=== PATIENT | female | born 1995 | race Caucasian/White ===

== ENCOUNTER → 2016-05-21 | Day surgery (SDC) | payer OTHER ==
[2016-05-14 11:25] VITALS: BMI 45.0
[~2016-05-21] VITALS: Ht 160 cm; Wt 116.4 kg
[~2016-05-21] MED LIST: ALBUAER INH; AMPH15CA7 PO; AMPH30CA3 PO; BCPILLS PO; CIPR-255 PO; FENTANYL CITRATE INJ 50 MCG/1 ML 2 ML VIAL ONE; FLUT0.15 NAE; IBUP-1050 PO; LEVO112T4 PO; LITH600C PO; MONT1TAB3 PO; PANT20TA PO; PRENTAB26 PO; PRLSR20 PO; PROPOFOL IV EMULSION 10 MG/ML 20 ML VIAL IV ONE; RANI150T3 PO; SODIUM CHLORIDE 0.9% 500ML 500 ML IV ONE
[2016-05-21 11:57] VITALS: Ht 160 cm; Wt 116.4 kg
--- NOTE | 2016-05-21 12:48 | Endo History and Physical ---
History & Physical Date of Service: May 21, 2016. Chief Complaint: RECTAL BLEEDING Referring Physician: RICHELLE MICHAELS MD History of Present Illness 20 y presenting for evaluation for rectal bleeding Past Surgical History Hx Cardiac Surgery: No Hx Internal Defibrillator: No Hx Pacemaker: No Hx Abdominal Surgery: Yes (ILYA) Hx of Implantable Prosthesis: No Hx Post-Op Nausea and Vomiting: No Hx Cancer Surgery: No Hx Thoracic Surgery: No Hx Orthopedic: No Hx Urinary Tract Surgery: No Family History Colon CA Social History Smoking Status: Never Smoker Hx Substance Use: No Hx Alcohol Use: No Allergies Coded Allergies: Hydrocodone (Verified Allergy, Unknown, vomiting, rash, 05/14/16) Sulfamethoxazole w/Trimethoprim (Verified Allergy, Unknown, vomiting, 05/14) Current Medications Reported Home Medications Medications Dose Route/Sig Max Daily Dose Days Date Category Adderall Xr 15MG (Amphetamine-Dextroamphetamine 15MG) 1 Cap Cap 15 Mg PO DAILY AFTERNOON 05/14/16 Reported Adderall Xr 30MG (Amphetamine-Dextroamphetamine 30MG) 1 Cap Cap 30 Mg PO QAM 05/14/16 Reported Zantac (Ranitidine HCl) 150 Mg Tab 150 Mg PO BID 05/14/16 Reported Proventil Hfa (Albuterol Sulfate) 108 Mcg/Act Aer 2 Puff INH Q4H PRN 05/14/16 Reported Prilosec (Omeprazole) 20 Mg Capcr 20 Mg PO BID 05/14/16 Reported Flonase Allergy Relief (Fluticasone Propionate (Nasal)) 50 Mcg/Act Spr 1 [place]ALL QAM PRN 05/14/16 Reported Vitamin (Prenat Multivit/[place]/Iron/Folic Ac) Tab 1 Tab PO QAM 05/14/16 Reported Control Pills (Miscellaneous) Tab 1 Tab PO QAM 05/14/16 Reported Levothyroxine Sodium 112 Mcg Tab 1 Tab PO QAM 90 05/14/16 Reported Singulair (Montelukast Sodium) 10 Mg Tab 10 Mg PO QAM 02/15/16 Reported [place] Carbonate 600 Mg Cap 600 Mg PO BID 09/05/13 Reported Vital Signs Weight (Kilograms): 116.36 Height (Feet): 5 Height (Inches): 3 Date Time Temp Pulse Resp B/P Pulse Ox O2 Delivery O2 Flow Rate FiO2 05/21/16 11:59 36.4 95 16 183/86 96 Room Air Physical Exam General Appearance: WD/WN, no apparent distress Respiratory/Chest: Respiratory effort: no dyspnea Auscultation: breath sounds normal, CTA except as noted, no wheezing Cardiovascular: Apical Impulse: not displaced Heart Auscultation: RRR, normal S1, normal S2 Abdomen: Bowel Sounds: normal Inspection & Palpation: soft, non-distended, no tenderness, guarding & rebound Assessment and Plan 20 yo presenting for evaluation of rectal bleeding
--- NOTE | 2016-05-21 13:04 | Discharge Instructions ---
Endoscopy Patient Instructions Date / Procedure(s) Performed May 21, 2016. Colonoscopy Allergy Information Coded Allergies: Hydrocodone (Verified Allergy, Unknown, vomiting, rash, 05/14/16) Sulfamethoxazole w/Trimethoprim (Verified Allergy, Unknown, vomiting, 05/14) Discharge Date / Findings May 21, 2016. Internal Hemorrhoids Provider Instructions Activity Restrictions - No exercising or heavy lifting for 24 hours. - Do not drink alcohol the day of the procedure. - Do not drive a car or operate machinery until the day after the procedure. - Do not make any important decisions or sign important papers in 24 hours after the procedure. Following Day: - Return to full activity which may include returning to work/school. Diet Start your diet with liquids and light foods (jello, soup, juice, toast). Then eat your usual diet if not nauseated. Treatment For Common After Affects For mild abdominal pain, bloating, or excessive gas: - Rest - Eat lightly - Lie on right side Follow-Up Information Follow-up with RICHELLE MICHAELS MD as scheduled Anesthesia Information What You Should Know You have had a procedure that required some medicine to reduce anxiety and discomfort. This treatment is called moderate sedation. After receiving the treatment, you may be sleepy, but you will be able to breathe on your own. The effects of the treatment may last for several hours. Follow these instructions along with Activity/Diet recommendations noted above: * Do NOT do anything where dizziness or clumsiness would be dangerous. * Rest quietly at home today, then you can be up and about tomorrow. * Have a responsible person stay with you the rest of today. * You may have had an I.V. today. If so, you may take the dressing off later today. Recommendations Call your doctor if: * Trouble breathing * Continuous vomiting for more than 24 hours * Temperature above 101 degrees * Severe abdominal pain or bloating * Pain not relieved by pain medicine ordered * There is increased drainage or redness from any incision * A large amount of rectal bleeding greater than 2-3 tablespoons. (If you had a polyp/s removed or have hemorrhoids, a small amount of blood - from the rectum is to be expected.) * You have any unanswered questions or concerns. IN THE EVENT OF A SERIOUS EMERGENCY, GO TO THE NEAREST EMERGENCY ROOM Your discharge instructions were prepared by provider Marcial Brooks. Patient Instructions Signature Page Geno Talamantes Patient (or Guardian) Signature/Date: I have read and understand the instructions given to me by my caregivers. Caregiver/RN/Doctor Signature/Date: The above-named patient and/or guardian has received patient instructions on this date. + Original Patient Signature Page (only) stays with chart. Please make copy for patient.
--- NOTE | 2016-05-21 13:07 | GI REPORT ---
Procedure Date: 05/21/2016 12:18 PM Procedure: Colonoscopy Indications: Rectal bleeding Medicines: General Anesthesia Complications: No immediate complications. Estimated blood loss: None. Estimated Blood Loss: Estimated blood loss: none. Procedure: Pre-Anesthesia Assessment: - Pre-Anesthesia Assessment: - Prior to the procedure, a History and Physical was performed, and patient medications, allergies and sensitivities were reviewed. The patient's tolerance of previous anesthesia was reviewed. Please see [employer] for complete details. - The risks and benefits of the procedure and the sedation options and risks were discussed with the patient. All questions were answered and informed consent was obtained. - Patient identification and proposed procedure were verified prior to the procedure by the physician and the nurse. The procedure was verified in the pre-procedure area in the procedure room. After obtaining informed consent, the endoscope was passed carefully and meticuously under direct vision and only advanced when the lumen was clearly identified, C02 insuflation was utilized throughout the entirity of the procedure. Throughout the procedure, the patient's blood pressure, pulse, and oxygen saturations were monitored continuously. After I obtained informed consent, the scope was passed under direct vision. Throughout the procedure, the patient's blood pressure, pulse, and oxygen saturations were monitored continuously. The scope was introduced through the anus and advanced to the cecum, identified by appendiceal orifice and ileocecal valve. The colonoscopy was performed without difficulty. The patient tolerated the procedure well. The quality of the bowel preparation was good. Findings: Internal hemorrhoids were found during retroflexion. The terminal ileum appeared normal. The exam was otherwise without abnormality on direct and retroflexion views. Impression: - Internal hemorrhoids. - The examined portion of the ileum was normal. - The examination was otherwise normal on direct and retroflexion views. - No specimens collected. Recommendation: - Discharge patient to home (with escort). - Return to referring physician as previously scheduled. - Over the counter hemorrhoids Marcial Brooks MD 05/21/2016 1:07:46 PM This report has been signed electronically. Note Initiated On: 05/21/2016 12:18 PM
--- NOTE | 2016-05-21 13:23 | Anesthesiology Progress Note ---
Anesthesia Post Op Note Date & Time May 21, 2016 at 13:23 Vital Signs Pain Intensity: 0 Vital Signs Past 12 Hours Date Time Temp Pulse Resp B/P Pulse Ox O2 Delivery O2 Flow Rate FiO2 05/21/16 13:05 94 16 106/73 95 Room Air 05/21/16 11:59 36.4 95 16 183/86 96 Room Air Notes Mental Status: alert / awake / arousable, participated in evaluation Pt Amnestic to Procedure: Yes Nausea / Vomiting: adequately controlled Pain: adequately controlled Airway Patency, RR, SpO2: stable & adequate BP & HR: stable & adequate Hydration State: stable & adequate Anesthetic Complications: no major complications apparent
[2016-05-21 13:35] VITALS: BP 116/69; PULSE 91; O2SAT 96
== END | disposition home or self-care (01) ==
LOC: C.GI 11:38
PROVIDERS: ATTEND Internal Medicine
DX: K62.5 Hemorrhage of anus and rectum (principal); Z80.0 Family history of malignant neoplasm of digestive organs; K64.8 Other hemorrhoids; Z98.890 Other specified postprocedural states; Z88.2 Allergy status to sulfonamides; Z88.8 Allergy status to other drugs, medicaments and biological substances

== ENCOUNTER 2016-06-30 22:48 | Emergency (ER) | payer OTHER ==
[~2016-06-30] VITALS: Ht 162.6 cm; Wt 100.0 kg
[~2016-06-30 22:48] MED LIST changes: -CIPR-255 PO; -FENTANYL CITRATE INJ 50 MCG/1 ML 2 ML VIAL ONE; -IBUP-1050 PO; -PANT20TA PO; -PROPOFOL IV EMULSION 10 MG/ML 20 ML VIAL IV ONE; -SODIUM CHLORIDE 0.9% 500ML 500 ML IV ONE
[2016-06-30 23:07] VITALS: Ht 162.6 cm; Wt 100.0 kg
[2016-06-30 23:15] VITALS: O2SAT 97
[2016-06-30] MEDS ORDERED: KETOROLAC TROMETHAMINE 30 MG/ML VIAL IV STA (23:15)
[2016-06-30] MEDS ORDERED: GI COCKTAIL PO ONE (23:15)
[2016-06-30] MEDS ORDERED: SODIUM CHLORIDE 0.9% 1000ML 1,000 ML IV ONE (23:15)
[2016-06-30] MEDS ORDERED: ONDANSETRON INJ 2 MG/ML 2 ML VIAL IV STA (23:15)
[2016-06-30 23:32] LABS: BASO % 0.4 %; BASO ABS # 0.04 K/uL (0-0.2); COMPLETE YES; EOS % 2.3 %; HEMATOCRIT 41.3 % (37-47); IG% 0.2 %; LYMPH % 25.4 %; LYMPH ABS # 2.68 K/uL (1.2-3.4); MEAN CELL VOLUME 83.3 fL (80-100); MEAN CORPUSCULAR HEMOGLOBIN 27.6 pg (25-34); MEAN CORPUSCULAR HGB CONC 33.2 g/dl (32-36); MEAN PLATELET VOLUME 11.6 fL (7.4-10.4); MONO % 8.5 %; NEUT % 63.2 %; PLATELET COUNT 420 K/uL (130-400); RED BLOOD COUNT 4.96 M/uL (4.2-5.4); WHITE BLOOD COUNT 10.56 K/uL (4.8-10.8)
[2016-06-30 23:39] LABS: URINE APPEARANCE CLOUDY (CLEAR); URINE BILIRUBIN NEG (NEG); URINE COLOR YELLOW; URINE EPITHELIAL CELL AUTO >30 /lpf (0-5); URINE NITRITE NEG (NEG); URINE PH 6.5 (4.5-7.5); URINE SPECIFIC GRAVITY 1.024 (1.000-1.030); UROBILINOGEN NEG (NEG); ZZUR CULT IF INDIC CLEAN CATCH YES
[2016-06-30] MEDS ORDERED: ALUMINUM/MAGNESIUM SUSP 30 ML UDC ONE (23:39)
[2016-06-30] MEDS ORDERED: LIDOCAINE HCL 2% VISC SOLN 20 ML UDC ONE (23:39)
[2016-06-30 23:40] LABS: MANUAL MICROSCOPIC REQUIRED? NO; REVIEW REQ? NO
[2016-06-30 23:55] LABS: BUN/CREATININE RATIO 22.9 (10-20); CALCIUM 9.4 mg/dl (8.5-10.1); CREATININE 0.75 mg/dl (0.60-1.20)
[2016-07-01] LABS: BENZODIAZEPINE, URINE NEG (NEG); COCAINE,URINE NEG (NEG); PHENCYCLIDINE, URINE NEG (NEG)
[2016-07-01 00:07] LABS: THYROID STIMULATING HORMONE 6.03 uIu/ml (0.300-4.500)
[2016-07-01] MEDS ORDERED: CIPR-255 PO (01:20)
[2016-07-01] MEDS ORDERED: CIPROFLOXACIN 500MG HOME PACK PO ONE (01:30)
[2016-07-01 01:38] VITALS: BP 118/53; PULSE 93; TEMP 37.5; O2SAT 96
--- NOTE | 2016-07-01 02:00 | EMERGENCY ROOM VISIT NOTE ---
History First contact with patient: 23:08 Chief Complaint: ABDOMINAL PAIN Stated Complaint: AB PAIN Nursing Triage Summary: right sided abd pain and nausea for a month, follows with Dr. Meza, "unable to get a dx" Pmhx michael, 2014 was prescribed a rx for zofran, states no relief History of Present Illness The patient is a 20 year old female who presents to the Emergency Room with complaints of right-sided abdominal pain with nausea for the past month. The patient has been trying to follow with her primary care physician and still has persistent discomfort. She states that today her pain is slightly worse and different from normal, as it is now radiating into her epigastrium. The patient is status post cholecystectomy 3 years ago. She has been eating, drinking, and using the bathroom as normal. She denies chance of . She has not had fever or chills and rates her discomfort a 9/10. She has not taken anything today for her symptoms. Food does not appear to improve or worsen her discomfort. Review of Systems More than 10 systems were reviewed and otherwise negative with the exception of history of present illness. Past Medical/Surgical History Medical Problems: (1) Asthma (2) Bipolar Disorder, Unspecified (3) Esophageal Reflux Family History FHx: gallbladder disease Social History Smoking Status: Former Smoker Alcohol Use: none Drug Use: none Marital Status: single Housing Status: lives with family Occupation Status: student Current/Historical Medications Scheduled Amphetamine-Dextroamphetamine 15MG (Adderall Xr 15MG), 15 MG PO DAILY AFTERNOON Amphetamine-Dextroamphetamine 30MG (Adderall Xr 30MG), 30 MG PO QAM Control Pills ( Control Pills), 1 TAB PO QAM Ciprofloxacin Hcl (Cipro), 500 MG PO BID Levothyroxine Sodium (Levothyroxine Sodium), 112 MCG PO QAM [place] Carbonate ([place] Carbonate), 600 MG PO BID Montelukast Sodium (Singulair), 10 MG PO QAM Multivit/Min/Iron/Fol Ac/Pren ( Vitamin), 1 TAB PO QAM Omeprazole (Prilosec), 20 MG PO BID Ranitidine Hcl (Zantac), 150 MG PO BID Scheduled PRN Albuterol Sulfate (Proventil Hfa), 2 PUFF INH Q4H PRN for Shortness of Breath Fluticasone Propionate (Nasal) (Flonase Allergy Relief), 1 [place] QAM PRN for allergy season Allergies Coded Allergies: Hydrocodone (Verified Allergy, Unknown, vomiting, rash, 06/30/16) Sulfamethoxazole w/Trimethoprim (Verified Allergy, Unknown, vomiting, 06/30) Physical Exam Vital Signs Date Time Temp Pulse Resp B/P Pulse Ox O2 Delivery O2 Flow Rate FiO2 07/01/16 01:38 37.5 93 26 118/53 96 07/01/16 01:31 118/53 07/01/16 01:18 93 26 07/01/16 01:01 114/70 07/01/16 00:48 89 23 07/01/16 00:31 117/66 07/01/16 00:24 121/63 07/01/16 00:24 90 18 121/63 96 Room Air 07/01/16 00:01 134/54 06/30/16 23:48 105 21 94 06/30/16 23:46 149/88 06/30/16 23:31 162/98 06/30/16 23:18 104 26 97 06/30/16 23:16 164/100 06/30/16 23:15 97 Room Air 06/30/16 23:08 106 06/30/16 23:07 37.5 105 20 152/91 97 Room Air 06/30/16 23:06 152/91 Pain Rating (0-10): 0 Physical Exam VITALS: Vitals are noted on the nurse's note and reviewed by myself. Vital signs stable. GENERAL: Well-developed, well-nourished, white female, who is in no acute distress and resting comfortably. Patient is cooperative with the examination. HEAD: Normocephalic atraumatic. HEART: Regular rate and rhythm without murmurs gallops or rubs. LUNGS: Clear to auscultation bilaterally without wheezes, rales or rhonchi. No retractions or accessory muscle use. ABDOMEN: Positive normal bowel sounds x 4. Soft with right sided abdominal tenderness into the right flank on palpation. No rebound or guarding. When distracted the patient does not have appreciable tenderness on exam. MUSCULOSKELETAL: No muscle atrophy, erythema, or edema noted. Full range of motion without joint tenderness in all extremities. Medical Decision & Procedures ER Provider Diagnostic Interpretation: Numbers: [id number] Preliminary Findings Only See Final Report For Complete Findings CT ABDOMEN & PELVIS: No urolithiasis. No hydronephrosis. Appendix is normal. Gallbladder is surgically absent. Liver, pancreas, spleen, and adrenals are unremarkable on noncontrast exam. No free air. No free fluid. Bowel is normal caliber. Laboratory Results 06/30/16 23:20 Red Blood Count 4.96, Mean Corpuscular Volume 83.3, Mean Corpuscular Hemoglobin 27.6, Mean Corpuscular Hemoglobin Concent 33.2, Mean Platelet Volume 11.6, Neutrophils (%) (Auto) 63.2, Lymphocytes (%) (Auto) 25.4, Monocytes (%) (Auto) 8.5, Eosinophils (%) (Auto) 2.3, Basophils (%) (Auto) 0.4, Neutrophils # (Auto) 6.68, Lymphocytes # (Auto) 2.68, Monocytes # (Auto) 0.90, Eosinophils # (Auto) 0.24, Basophils # (Auto) 0.04 06/30/16 23:20 Test 06/30/16 23:20 White Blood Count 10.56 K/uL (4.8-10.8) Red Blood Count 4.96 M/uL (4.2-5.4) Hemoglobin 13.7 g/dL (12.0-16.0) Hematocrit 41.3 % (37-47) Mean Corpuscular Volume 83.3 fL (80-100) Mean Corpuscular Hemoglobin 27.6 pg (25-34) Mean Corpuscular Hemoglobin Concent 33.2 g/dl (32-36) Platelet Count 420 K/uL (130-400) Mean Platelet Volume 11.6 fL (7.4-10.4) Neutrophils (%) (Auto) 63.2 % Lymphocytes (%) (Auto) 25.4 % Monocytes (%) (Auto) 8.5 % Eosinophils (%) (Auto) 2.3 % Basophils (%) (Auto) 0.4 % Neutrophils # (Auto) 6.68 K/uL (1.4-6.5) Lymphocytes # (Auto) 2.68 K/uL (1.2-3.4) Monocytes # (Auto) 0.90 K/uL (0.11-0.59) Eosinophils # (Auto) 0.24 K/uL (0-0.5) Basophils # (Auto) 0.04 K/uL (0-0.2) RDW Standard Deviation 42.8 fL (36.4-46.3) RDW Coefficient of Variation 14.1 % (11.5-14.5) Immature Granulocyte % (Auto) 0.2 % Immature Granulocyte # (Auto) 0.02 K/uL (0.00-0.02) Urine Color YELLOW Urine Appearance CLOUDY (CLEAR) Urine pH 6.5 (4.5-7.5) Urine Specific [place] 1.024 (1.000-1.030) Urine Protein NEG (NEG) Urine Glucose (UA) NEG (NEG) Urine Ketones NEG (NEG) Urine Occult Blood NEG (NEG) Urine Nitrite NEG (NEG) Urine Bilirubin NEG (NEG) Urine Urobilinogen NEG (NEG) Urine Leukocyte Esterase LARGE (NEG) Urine WBC (Auto) >30 /hpf (0-5) Urine RBC (Auto) 5-10 /hpf (0-4) Urine Hyaline Casts (Auto) 5-10 /lpf (0-5) Urine Epithelial Cells (Auto) >30 /lpf (0-5) Urine Bacteria (Auto) 2+ (NEG) Urine Test NEG (NEG) Anion Gap 10.0 mmol/L (3-11) Est Creatinine Clear Calc Drug Dose 137.6 ml/min Estimated GFR () 133.0 Estimated GFR (Non- 114.7 BUN/Creatinine Ratio 22.9 (10-20) Calcium Level 9.4 mg/dl (8.5-10.1) Total Bilirubin 0.2 mg/dl (0.2-1) Aspartate Amino Transf (AST/SGOT) 16 U/L (15-37) Alanine Aminotransferase (ALT/SGPT) 37 U/L (12-78) Alkaline Phosphatase 87 U/L (45-117) Total Protein 7.7 gm/dl (6.4-8.2) Albumin 3.9 gm/dl (3.4-5.0) Globulin 3.8 gm/dl (2.5-4.0) Albumin/Globulin Ratio 1.0 (0.9-2) Lipase 119 U/L (73-393) Thyroid Stimulating Hormone (TSH) 6.030 uIu/ml (0.300-4.500) Urine Opiates Screen POS (NEG) Urine Methadone, Qualitative NEG (NEG) Urine Barbiturates NEG (NEG) Urine Phencyclidine (PCP) Level NEG (NEG) Ur Amphetamine/Methamphetamine NEG (NEG) MDMA (Ecstasy) Screen NEG (NEG) Urine Benzodiazepines Screen NEG (NEG) [place] Level < 0.2 mMOL/L (0.6-1.2) Urine Cocaine Metabolite NEG (NEG) Urine Marijuana (THC) NEG (NEG) Medications Administered Medications (Trade) Dose Ordered Sig/Parag Route Start Time Stop Time Status Last Admin Dose Admin Sodium Chloride (Nss 1000ml) 1,000 ml @ 999 mls/hr Q1H1M ONCE IV 06/30/16 23:15 07/01/16 00:15 DC 06/30/16 23:47 999 MLS/HR Ketorolac Tromethamine (Toradol Inj) 30 mg NOW STAT IV 06/30/16 23:15 06/30/16 23:18 DC 06/30/16 23:44 30 MG Ondansetron HCl (Zofran Inj) 4 mg NOW STAT IV 06/30/16 23:15 06/30/16 23:18 DC 06/30/16 23:44 4 MG Lidocaine HCl (Viscous Lidocaine 2% Soln) 20 ml STK-MED ONCE .ROUTE 06/30/16 23:39 06/30/16 23:42 DC 06/30/16 23:45 20 ML Al Hydroxide/Mg Hydroxide (Maalox Susp) 30 ml STK-MED ONCE .ROUTE 06/30/16 23:39 06/30/16 23:42 DC 06/30/16 23:45 30 ML Ciprofloxacin (Cipro 500MG Home Pack) 1 homepack UD ONCE PO 07/01/16 01:30 07/01/16 01:31 DC 07/01/16 01:37 1 HOMEPACK ED Course Physical exam and history were performed. Nursing notes and EMR were reviewed. Patient appears to have right-sided abdominal/right flank pain for the past month. The patient does not appear toxic on exam. IV access was established and labs were obtained. The patient was hydrated and medicated as above. I discussed options of care with the patient, and she is concerned for multiple potential etiologies of her pain. Because of this we did perform a CT scan of the abdomen and pelvis. The patient's blood work is as above and was reviewed. She does not have a significantly elevated white blood cell count, anemia, bandemia, or gross electrolyte imbalance. Lipase and transaminases are nondiagnostic. Her TSH is slightly elevated at 6. Her lithium is undetectable, and she states that she is taking this medication as prescribed. The patient's urine is highly suggestive of a UTI. She is not . Drug of abuse screen did show positive for opioids and negative for amphetamines. She is reportedly on Ritalin daily, and does not report taking opioids in the past few days. The patient CT scan returned as above and does not show significant findings. Repeat serial abdominal exam does not show worsening of her symptoms, or an exam consistent with an acute surgical abdomen. Overall the patient appears stable for discharge home. She will be given a course of Cipro for her UTI. The patient was asked to follow with her primary care physician seek further care and management. She was otherwise invited back to the ER with new, worsening, or concerning symptoms. The chart was completed utilizing [employer] Speech Voice Recognition Software. Grammatical errors, random word insertions, pronoun errors, and incomplete sentences are an occasional consequence of this system due to software limitations, ambient noise, and hardware issues. Any formal questions or concerns about the content, text, or information contained within the body of this dictation should be directly addressed to the provider for clarification. . Medical Decision Differential diagnosis: Etiologies such as appendicitis, diverticulitis, PUD, biliary pathology, UTI, pancreatitis, obstruction, mesenteric ischemia, aortic pathology, infections, inflammatory bowel disease, renal colic, as well as others were entertained. Impression Primary Impression: Abdominal pain Additional Impression: UTI (urinary tract infection) Departure Information Dispostion Home / Self-Care Condition GOOD Prescriptions Ciprofloxacin Hcl (CIPRO) 500 Mg Tab 500 MG PO BID for 9 Days, #18 TAB Prov: Homero Rendon PA-C 07/01/16 Forms HOME CARE DOCUMENTATION FORM, IMPORTANT VISIT INFORMATION Patient Instructions My [facility] Additional Instructions You were seen and evaluated today on an emergency basis only. This is not a substitute for, or an effort to provide, complete comprehensive medical care. It is not possible to recognize and treat all injuries or illnesses in a single emergency department visit. For this reason it is recommended that you followup with your primary care physician this week for ongoing care and evaluation. For baseline pain relief you may alternate ibuprofen and acetaminophen every 4 hours for pain control. Take 600 mg ibuprofen (Advil) and then 4 hours later take 1000 mg acetaminophen (Tylenol). Do not take more than 3000 mg acetaminophen in a single day. Ciprofloxacin(Cipro) 500mg: Take one pill twice daily for 10 total days for your infection. All antibiotics can cause diarrhea. If this occurs and you feel worse or it does not resolve in 1-2 days follow up with your doctor or return to the Emergency Department as this could be signs of serious underlying problems. If you experience any pain in your tendons or any tendon injury return to the ER for re-evaluation. Any medication can cause an allergic reaction, stop the pills immediately and return to the ER for rash, hives, breathing difficulties, or swelling. You are welcome to return to the emergency department anytime with new, worsening, or concerning symptoms. Problem Qualifiers
--- NOTE | 2016-07-01 06:38 | DIAGNOSTIC IMAGING REPORT ---
ABDOMEN AND PELVIS CT WITHOUT CONTRAST CT DOSE: 1423.69 mGy.cm HISTORY: Flank pain Right flank pain. No gallbladder. TECHNIQUE: Multiaxial CT images of the abdomen and pelvis were performed without contrast. COMPARISON STUDY: 09/12/2014 FINDINGS: The lung bases are clear. The unenhanced liver, spleen,, pancreas, kidneys, and adrenal glands are within normal limits. No bowel wall thickening or obstruction. The pelvic organs are unremarkable. No suspicious lytic or blastic osseous lesions. Prior cholecystectomy. Normal appendix. IMPRESSION: No significant abnormality identified within the abdomen or pelvis. Prior cholecystectomy. Electronically signed by: Anoop Elder M.D. 07/01/2016 6:37 AM Dictated Date/Time: 07/01/2016 6:36 AM
[2016-07-03 08:46] LABS: COD UR NEGATIVE NG/ML (CUTOFF=50); HYDROCOD UR NEGATIVE NG/ML (CUTOFF=50); HYDROMOR UR NEGATIVE NG/ML (CUTOFF=50); MORPHINE UR 3250 NG/ML (CUTOFF=50); NORHYDROCODONE CONF UR NEGATIVE NG/ML (CUTOFF=50); OXYMORPH UR NEGATIVE NG/ML (CUTOFF=50)
[2016-10-01] MEDS ORDERED: PANT20TA PO (21:53)
[2016-10-14] MEDS ORDERED: IBUP-1050 PO (11:05)
[2016-10-22] MEDS ORDERED: PRLSR20 PO (09:52)
== END 2016-07-01 01:39 | disposition home or self-care (01) ==
LOC: EDBD 22:48 → C.EDC 22:49
DX: R10.9 Unspecified abdominal pain (principal); N39.0 Urinary tract infection, site not specified; J45.909 Unspecified asthma, uncomplicated; F31.9 Bipolar disorder, unspecified; K21.9 Gastro-esophageal reflux disease without esophagitis; Z87.891 Personal history of nicotine dependence

== ENCOUNTER 2016-10-01 21:23 | Emergency (ER) | payer OTHER ==
[~2016-10-01] VITALS: Ht 160 cm; Wt 114.0 kg
[~2016-10-01 21:23] MED LIST changes: +CIPR-255 PO
[2016-10-01 21:27] VITALS: TEMP 36.8; Ht 160 cm; Wt 114.0 kg
[2016-10-01] MEDS ORDERED: PANT20TA2 PO (21:53)
--- NOTE | 2016-10-01 22:49 | DIAGNOSTIC IMAGING REPORT ---
LEFT KNEE 3 VIEWS CLINICAL HISTORY: left knee injury trauma. Pain. COMPARISON: None. DISCUSSION: The bones and joint spaces appear intact. There is no evidence of fracture, dislocation or bony disease. There is no evidence for soft tissue swelling. IMPRESSION: Negative study. Electronically signed by: Anoop Elder M.D. 10/01/2016 10:47 PM Dictated Date/Time: 10/01/2016 10:47 PM
[2016-10-01 23:15] VITALS: BP 139/89; PULSE 86; O2SAT 98
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
[2016-10-14] MEDS ORDERED: IBUP-1050 PO (11:05)
[2016-10-22] MEDS ORDERED: PRLSR20 PO (09:52)
[2017-02-18] MEDS ORDERED: PANT40TA2 PO (19:32)
== END 2016-10-01 23:17 | disposition home or self-care (01) ==
LOC: C.EDB 21:25 → C.EDD 23:17
DX: S89.92XA Unspecified injury of left lower leg, initial encounter (principal); W01.0XXA Fall on same level from slipping, tripping and stumbling without subsequent striking against object, initial encounter; F31.9 Bipolar disorder, unspecified; J45.909 Unspecified asthma, uncomplicated; K21.9 Gastro-esophageal reflux disease without esophagitis; Z79.899 Other long term (current) drug therapy; Z88.2 Allergy status to sulfonamides; Z88.5 Allergy status to narcotic agent

== ENCOUNTER → 2016-10-22 | Day surgery (SDC) | payer OTHER ==
[2016-10-14 11:05] VITALS: BMI 44.0
[~2016-10-22] VITALS: Ht 160 cm; Wt 114.5 kg
[~2016-10-22] MED LIST changes: -CIPR-255 PO; +IBUP-1050 PO; -LEVO112T4 PO; +LIDOCAINE HCL 2% 2 ML VIAL (20MG/ML) ONE; +MIDAZOLAM HCL 1 MG/ML 2ML VIAL ONE; +PANT20TA PO; -PRENTAB26 PO; +PROPOFOL IV EMULSION 10 MG/ML 20 ML VIAL IV ONE; -RANI150T3 PO; +SODIUM CHLORIDE 0.9% 500ML 500 ML IV ONE
[2016-10-22 07:58] VITALS: Ht 160 cm; Wt 114.5 kg
--- NOTE | 2016-10-22 08:59 | Endo History and Physical ---
History & Physical Date of Service: Oct 22, 2016. Chief Complaint: GERD Referring Physician: DR. PEOPLES/JUSTICE HAYES History of Present Illness vomiting, reflux Past Surgical History Hx Cardiac Surgery: No Hx Internal Defibrillator: No Hx Pacemaker: No Hx Abdominal Surgery: Yes (ILYA) Hx Post-Op Nausea and Vomiting: No Hx Cancer Surgery: No Hx Thoracic Surgery: No Hx Orthopedic: No Hx Urinary Tract Surgery: No Family History None Social History Smoking Status: Never Smoker Hx Substance Use: No Hx Alcohol Use: No Allergies Coded Allergies: Hydrocodone (Verified Allergy, Unknown, vomiting, rash, 10/22/16) Sulfamethoxazole w/Trimethoprim (Verified Allergy, Unknown, vomiting, ) Current Medications Reported Home Medications Medications Dose Route/Sig Max Daily Dose Days Date Category Advil (Ibuprofen) 200 Mg Tab 200-600 Mg PO Q4H PRN 10/14/16 Reported Protonix (Pantoprazole Sodium) 20 Mg Tab 20 Mg PO QAM 10/01/16 Reported Adderall Xr 15MG (Amphetamine-Dextroamphetamine 15MG) 1 Cap Cap 15 Mg PO DAILY AFTERNOON 05/14/16 Reported Adderall Xr 30MG (Amphetamine-Dextroamphetamine 30MG) 1 Cap Cap 30 Mg PO QAM 05/14/16 Reported Proventil Hfa (Albuterol Sulfate) 108 Mcg/Act Aer 2 Puff INH Q4H PRN 05/14/16 Reported Flonase Allergy Relief (Fluticasone Propionate (Nasal)) 50 Mcg/Act Spr 1 [place] MARSHALL QAM PRN 05/14/16 Reported Control Pills (Miscellaneous) Tab 1 Tab PO QAM 05/14/16 Reported Singulair (Montelukast Sodium) 10 Mg Tab 10 Mg PO QAM 02/15/16 Reported [place] Carbonate 600 Mg Cap 600 Mg PO BID 09/05/13 Reported Vital Signs Weight (Kilograms): 114.55 Height (Feet): 5 Height (Inches): 3 Date Time Temp Pulse Resp B/P (MAP) Pulse Ox O2 Delivery O2 Flow Rate FiO2 10/22/16 08:11 36.7 84 20 120/72 (88) 94 Room Air Physical Exam General Appearance: WD/WN, no apparent distress Assessment and Plan EGD today
--- NOTE | 2016-10-22 09:14 | Discharge Instructions ---
Endoscopy Patient Instructions Date / Procedure(s) Performed Oct 22, 2016. EGD Allergy Information Coded Allergies: Hydrocodone (Verified Allergy, Unknown, vomiting, rash, 10/22/16) Sulfamethoxazole w/Trimethoprim (Verified Allergy, Unknown, vomiting, ) Discharge Date / Findings Oct 22, 2016. normal EGD Medication Instructions Restart Stopped Medication(s): OK to resume all home medications As above Provider Instructions Activity Restrictions - No exercising or heavy lifting for 24 hours. - Do not drink alcohol the day of the procedure. - Do not drive a car or operate machinery until the day after the procedure. - Do not make any important decisions or sign important papers in 24 hours after the procedure. Following Day: - Return to full activity which may include returning to work/school. Diet Start your diet with liquids and light foods (jello, soup, juice, toast). Then eat your usual diet if not nauseated. Treatment For Common After Affects For mild abdominal pain, bloating, or excessive gas: - Rest - Eat lightly - Lie on right side Follow-Up Information Follow-up with DR. PEOPLES/JUSTICE HAYES as scheduled Anesthesia Information What You Should Know You have had a procedure that required some medicine to reduce anxiety and discomfort. This treatment is called moderate sedation. After receiving the treatment, you may be sleepy, but you will be able to breathe on your own. The effects of the treatment may last for several hours. Follow these instructions along with Activity/Diet recommendations noted above: * Do NOT do anything where dizziness or clumsiness would be dangerous. * Rest quietly at home today, then you can be up and about tomorrow. * Have a responsible person stay with you the rest of today. * You may have had an I.V. today. If so, you may take the dressing off later today. Recommendations Call your doctor if: * Trouble breathing * Continuous vomiting for more than 24 hours * Temperature above 101 degrees * Severe abdominal pain or bloating * Pain not relieved by pain medicine ordered * There is increased drainage or redness from any incision * A large amount of rectal bleeding greater than 2-3 tablespoons. (If you had a polyp/s removed or have hemorrhoids, a small amount of blood - from the rectum is to be expected.) * You have any unanswered questions or concerns. IN THE EVENT OF A SERIOUS EMERGENCY, GO TO THE NEAREST EMERGENCY ROOM Your discharge instructions were prepared by provider Niki Rapp. Patient Instructions Signature Page Geno Talamantes Patient (or Guardian) Signature/Date: I have read and understand the instructions given to me by my caregivers. Caregiver/RN/Doctor Signature/Date: The above-named patient and/or guardian has received patient instructions on this date. + Original Patient Signature Page (only) stays with chart. Please make copy for patient.
--- NOTE | 2016-10-22 09:17 | GI REPORT ---
Procedure Date: 10/22/2016 9:05 AM Procedure: Upper GI endoscopy Indications: Vomiting Medicines: Propofol per Anesthesia Complications: No immediate complications. Estimated blood loss: Minimal. Estimated Blood Loss: Estimated blood loss was minimal. Procedure: Pre-Anesthesia Assessment: - Prior to the procedure, a History and Physical was performed, and patient medications, allergies and sensitivities were reviewed. The patient's tolerance of previous anesthesia was reviewed. - The risks and benefits of the procedure and the sedation options and risks were discussed with the patient. All questions were answered and informed consent was obtained. - Patient identification and proposed procedure were verified prior to the procedure by the physician and the nurse. The procedure was verified in the pre-procedure area in the procedure room. - Mental Status Examination: alert and oriented. Airway Examination: normal oropharyngeal airway and neck mobility. Respiratory Examination: clear to auscultation. CV Examination: normal. Abdominal Examination: bowel sounds present, abdomen soft and non-tender, no masses or organomegaly noted. - ASA Grade Assessment: III - A patient with severe systemic disease. After obtaining informed consent, the endoscope was passed under direct vision. Throughout the procedure, the patient's blood pressure, pulse, and oxygen saturations were monitored continuously. The scope was introduced through the mouth, and advanced to the second part of duodenum. The upper GI endoscopy was accomplished without difficulty. The patient tolerated the procedure well. Findings: The esophagus was normal. The entire examined stomach was normal. Biopsies were taken with a cold forceps for Helicobacter pylori testing. Verification of patient identification for the specimen was done by the physician and nurse using the patient's name and date. Estimated blood loss was minimal. The examined duodenum was normal. Impression: - Normal esophagus. - Normal stomach. Biopsied. - Normal examined duodenum. Recommendation: - Await pathology results. - Follow an antireflux regimen. - Continue present medications. - Consider gastric emptying scan if ot already done. - Return to referring physician as previously scheduled. - Discharge patient to home. Niki Rapp D.O. Niki Rapp, 10/22/2016 9:17:05 AM This report has been signed electronically. Note Initiated On: 10/22/2016 9:05 AM I attest to the content of the Intraoperative Record and orders documented therein, exceptions below
--- NOTE | 2016-10-22 09:34 | Anesthesiology Progress Note ---
Anesthesia Post Op Note Date & Time Oct 22, 2016 at 09:33 Vital Signs Pain Intensity: 0 Vital Signs Past 12 Hours Date Time Temp Pulse Resp B/P (MAP) Pulse Ox O2 Delivery O2 Flow Rate FiO2 10/22/16 09:16 84 20 93/68 (76) 97 Room Air 10/22/16 08:11 36.7 84 20 120/72 (88) 94 Room Air Notes Mental Status: alert / awake / arousable, participated in evaluation Pt Amnestic to Procedure: Yes Nausea / Vomiting: adequately controlled Pain: adequately controlled Airway Patency, RR, SpO2: stable & adequate BP & HR: stable & adequate Hydration State: stable & adequate Anesthetic Complications: no major complications apparent
[2016-10-22 09:57] VITALS: BP 101/83; PULSE 86; O2SAT 97
== END | disposition home or self-care (01) ==
LOC: C.GI 07:38
PROVIDERS: ATTEND Internal Medicine
DX: K21.9 Gastro-esophageal reflux disease without esophagitis (principal); R11.10 Vomiting, unspecified

== ENCOUNTER 2016-11-29 22:21 | Emergency (ER) | payer OTHER ==
[~2016-11-29] VITALS: Ht 161.3 cm; Wt 116.3 kg
[~2016-11-29 22:21] MED LIST changes: -LIDOCAINE HCL 2% 2 ML VIAL (20MG/ML) ONE; -MIDAZOLAM HCL 1 MG/ML 2ML VIAL ONE; -PROPOFOL IV EMULSION 10 MG/ML 20 ML VIAL IV ONE; -SODIUM CHLORIDE 0.9% 500ML 500 ML IV ONE
[2016-11-29 22:31] VITALS: TEMP 36.7; Ht 161.3 cm; Wt 116.3 kg
[2016-11-29] MEDS ORDERED: SODIUM CHLORIDE 0.9% 1000ML 1,000 ML IV STA (23:18)
[2016-11-29] MEDS ORDERED: ONDANSETRON INJ 2 MG/ML 2 ML VIAL IV STA (23:18)
[2016-11-29] MEDS ORDERED: MoRPHine SULFATE 4 MG/ML 1 ML CARP\\VIAL IV PRN (23:30)
[2016-11-30 00:04] LABS: BASO % 0.4 %; BASO ABS # 0.05 K/uL (0-0.2); COMPLETE YES; EOS % 2.1 %; HEMATOCRIT 39.9 % (37-47); IG% 0.4 %; LYMPH % 27.4 %; LYMPH ABS # 3.07 K/uL (1.2-3.4); MEAN CELL VOLUME 84.2 fL (80-100); MEAN CORPUSCULAR HEMOGLOBIN 27.6 pg (25-34); MEAN CORPUSCULAR HGB CONC 32.8 g/dl (32-36); MEAN PLATELET VOLUME 10.9 fL (7.4-10.4); NEUT % 62.7 %; PLATELET COUNT 377 K/uL (130-400); RED BLOOD COUNT 4.74 M/uL (4.2-5.4); WHITE BLOOD COUNT 11.22 K/uL (4.8-10.8)
[2016-11-30 00:10] LABS: URINE APPEARANCE CLEAR (CLEAR); URINE BILIRUBIN NEG (NEG); URINE COLOR YELLOW; URINE EPITHELIAL CELL AUTO >30 /lpf (0-5); URINE NITRITE NEG (NEG); URINE PH 5.5 (4.5-7.5); URINE SPECIFIC GRAVITY 1.035 (1.000-1.030); UROBILINOGEN NEG (NEG)
[2016-11-30 00:12] LABS: MANUAL MICROSCOPIC REQUIRED? NO; REVIEW REQ? NO
[2016-11-30 00:12] LABS: PARTIAL THROMBOPLASTIN RATIO 1.1; PROTHROMBIN TIME (PATIENT) 10.2 SECONDS (9.0-12.0)
[2016-11-30 00:25] LABS: ALT/SGPT 31 U/L (12-78); AST/SGOT 12 U/L (15-37); BLOOD UREA NITROGEN 19 mg/dl (7-18); BUN/CREATININE RATIO 23.2 (10-20); CALCIUM 8.8 mg/dl (8.5-10.1); CARBON DIOXIDE 28 mmol/L (21-32); CHLORIDE 110 mmol/L (98-107); GLUCOSE 82 mg/dl (70-99); POTASSIUM 3.9 mmol/L (3.5-5.1); SODIUM 143 mmol/L (136-145)
[2016-11-30 00:28] LABS: ALKALINE PHOSPHATASE 92 U/L (45-117)
[2016-11-30 01:07] VITALS: BP 116/70; PULSE 90; O2SAT 95
--- NOTE | 2016-11-30 07:59 | DIAGNOSTIC IMAGING REPORT ---
CHEST AND ABDOMEN 2 VIEWS HISTORY: Epigastric pain. COMPARISON: Abdomen and pelvis CT 07/01/2016. FINDINGS: The lungs are clear. The cardiomediastinal silhouette is within normal limits. There is no pneumoperitoneum or pneumatosis. The bowel gas pattern is unremarkable. No evidence for bowel obstruction. No pathologic calcifications. Cholecystectomy. IMPRESSION: No acute cardiopulmonary process. No evidence for bowel obstruction. Electronically signed by: Denys Jin M.D. 11/30/2016 7:58 AM Dictated Date/Time: 11/30/2016 7:57 AM
--- NOTE | 2016-11-30 17:23 | EMERGENCY ROOM VISIT NOTE ---
ED Visit Note First contact with patient: 22:48 Chief Complaint: Abdominal pain. History of Present Illness: Ms. Talamantes is a 21 year-old white female who ambulates into the ED accompanied by male friend complaining of epigastric abdominal pain. Historically patient reports chronic abdominal pain, and is status post cholecystectomy. She reports she has been having this ongoing pain for the last 3 years. She has seen 2 different gastroenterologists and had an EGD and a colonoscopy was performed and no cause for her pain was noted. It was noted during her colonoscopy that she had internal hemorrhoids and no treatment recommendations were made at that time. Patient reports a ongoing epigastric abdominal pain for the last 3 years. Pain is constant and daily. She describes it as a sharp pain in the epigastric area and the medial border of the right and left upper quadrants. She rates her discomfort 10/10 every day. She has not taken any medications for her pain prior to arrival at the hospital before any time previously. Her pain intermittently does radiate into her back. Her pain worsens when she moves in the lying to sitting position. She has not identified any alleviating factors related to the pain. Associated with her pain for last 4 day she reports she has been passing quarter-sized blood clots and she has noted blood in her underwear and she has noted bleeding when brushing her teeth and easy bruising over the last few weeks. Patient denies fevers, chills, sweats, skin eruptions, skin color changes, headaches, lightheadedness, dizziness, upper respiratory tract symptoms, shortness of breath, chest pain, nausea, vomiting, diarrhea, constipation, black /tarry stools, urinary symptoms, hematuria, vaginal bleeding, vaginal discharge , back/flank pain. Review of Systems: As noted above in history of present illness. All body systems were reviewed and found to be negative as noted above. Past Medical History: As previously noted, asthma, unspecified urinary problems , status post myringotomy. Current Medications: Medications Dose Route/Sig Max Daily Dose Days Date Category Prilosec (Omeprazole) 20 Mg Capcr 20 Mg PO DAILY 10/22/16 Reported Advil (Ibuprofen) 200 Mg Tab 200-600 Mg PO Q4H PRN 10/14/16 Reported Protonix (Pantoprazole Sodium) 20 Mg Tab 20 Mg PO QAM 10/01/16 Reported Adderall Xr 15MG (Amphetamine-Dextroamphetamine 15MG) 1 Cap Cap 15 Mg PO DAILY AFTERNOON 05/14/16 Reported Adderall Xr 30MG (Amphetamine-Dextroamphetamine 30MG) 1 Cap Cap 30 Mg PO QAM 05/14/16 Reported Proventil Hfa (Albuterol Sulfate) 108 Mcg/Act Aer 2 Puff INH Q4H PRN 05/14/16 Reported Flonase Allergy Relief (Fluticasone Propionate (Nasal)) 50 Mcg/Act Spr 1 [place] MARSHALL QAM PRN 05/14/16 Reported Control Pills (Miscellaneous) Tab 1 Tab PO QAM 05/14/16 Reported Singulair (Montelukast Sodium) 10 Mg Tab 10 Mg PO QAM 02/15/16 Reported [place] Carbonate 600 Mg Cap 600 Mg PO BID 09/05/13 Reported Allergies to Medications: Hydrocodone, Bactrim. Social History: Patient is not employed; she lives with her mother and feels safe in her home environment; she denies tobacco and alcohol use. Physical Examination: Vital Signs: Date Time Temp Pulse Resp B/P (MAP) Pulse Ox O2 Delivery O2 Flow Rate FiO2 11/30/16 01:07 90 22 116/70 95 11/30/16 00:06 97 18 124/77 93 Room Air 11/29/16 22:31 36.7 108 18 129/77 95 Room Air GENERAL: 21-year-old female in mild distress due to pain, nontoxic-appearing, afebrile and hemodynamically stable. NEUROLOGICAL: Awake, alert and oriented to person, place and time. Answering questions appropriately and following commands. Normal gait. Good hand eye coordination. SKIN: Warm, dry and pink. No soft tissue eruptions or trauma noted. HEENT: Atraumatic and normocephalic. PERRLA. Sclera white and conjunctiva pink. Oral cavity moist and pink. Pharynx is nonerythematous or edematous. Speech normal. No lymphadenopathy. Trachea midline. No jugular venous distention. BACK: No tenderness over the bony spine. No CVA tenderness. THORAX: Lungs sounds are clear to auscultation and equal bilaterally with symmetrical chest wall. No wheezing, rales or rhonchi. No crepitus, tenderness , subcutaneous air or deformities noted. HEART: Regular rate and rhythm. No gallops, rubs or murmurs are appreciated. ABDOMEN: Obese and soft with mild tenderness in the lower aspect of the epigastric and minimally in the medial border of the left upper quadrant. Positive bowel sounds in all quadrants. No guarding, rigidity or organomegaly. RECTAL: No external tags or hemorrhoids. Normal rectal tone. No palpable rectal masses. Scant heme positive stool. EXTREMITIES: Moves all extremities well on command and with purpose. All distal neurovascular statuses are intact and equal bilaterally. ED Course: Patient is assessed as noted above. Patient's medication were reviewed. Laboratory Testing: Test 11/29/16 23:45 11/29/16 23:50 Range/Units Urine Color YELLOW Urine Appearance CLEAR CLEAR Urine pH 5.5 4.5-7.5 Urine Specific [place] 1.035 1.000-1.030 Urine Protein NEG NEG Urine Glucose (UA) NEG NEG Urine Ketones TRACE NEG Urine Occult Blood NEG NEG Urine Nitrite NEG NEG Urine Bilirubin NEG NEG Urine Urobilinogen NEG NEG Urine Leukocyte Esterase SMALL NEG Urine WBC (Auto) 10-30 0-5 /hpf Urine RBC (Auto) 0-4 0-4 /hpf Urine Hyaline Casts (Auto) 1-5 0-5 /lpf Urine Epithelial Cells (Auto) >30 0-5 /lpf Urine Bacteria (Auto) 1+ NEG Urine Test NEG NEG White Blood Count 11.22 4.8-10.8 K/uL Red Blood Count 4.74 4.2-5.4 M/uL Hemoglobin 13.1 12.0-16.0 g/dL Hematocrit 39.9 37-47 % Mean Corpuscular Volume 84.2 80-100 fL Mean Corpuscular Hemoglobin 27.6 25-34 pg Mean Corpuscular Hemoglobin Concent 32.8 32-36 g/dl Platelet Count 377 130-400 K/uL Mean Platelet Volume 10.9 7.4-10.4 fL Neutrophils (%) (Auto) 62.7 % Lymphocytes (%) (Auto) 27.4 % Monocytes (%) (Auto) 7.0 % Eosinophils (%) (Auto) 2.1 % Basophils (%) (Auto) 0.4 % Neutrophils # (Auto) 7.02 1.4-6.5 K/uL Lymphocytes # (Auto) 3.07 1.2-3.4 K/uL Monocytes # (Auto) 0.79 0.11-0.59 K/uL Eosinophils # (Auto) 0.24 0-0.5 K/uL Basophils # (Auto) 0.05 0-0.2 K/uL RDW Standard Deviation 43.1 36.4-46.3 fL RDW Coefficient of Variation 14.0 11.5-14.5 % Immature Granulocyte % (Auto) 0.4 % Immature Granulocyte # (Auto) 0.05 0.00-0.02 K/uL Prothrombin Time 10.2 9.0-12.0 SECONDS Prothromb Time International Ratio 1.0 0.9-1.1 Activated Partial Thromboplast Time 27.6 21.0-31.0 SECONDS Partial Thromboplastin Ratio 1.1 Sodium Level 143 136-145 mmol/L Potassium Level 3.9 3.5-5.1 mmol/L Chloride Level 110 98-107 mmol/L Carbon Dioxide Level 28 21-32 mmol/L Anion Gap 5.0 3-11 mmol/L Blood Urea Nitrogen 19 7-18 mg/dl Creatinine 0.80 0.60-1.20 mg/dl Est Creatinine Clear Calc Drug Dose 138.1 ml/min Estimated GFR () 122.2 Estimated GFR (Non- 105.4 BUN/Creatinine Ratio 23.2 10-20 Random Glucose 82 70-99 mg/dl Calcium Level 8.8 8.5-10.1 mg/dl Total Bilirubin 0.3 0.2-1 mg/dl Direct Bilirubin < 0.1 0-0.2 mg/dl Aspartate Amino Transf (AST/SGOT) 12 15-37 U/L Alanine Aminotransferase (ALT/SGPT) 31 12-78 U/L Alkaline Phosphatase 92 45-117 U/L Total Protein 7.0 6.4-8.2 gm/dl Albumin 3.5 3.4-5.0 gm/dl Lipase 99 73-393 U/L Acute Abdominal Series: Were read by myself and reviewed with Dr. Dillon; shows a normal-appearing chest with no signs of infiltrates, effusions or pneumothorax. Normal heart silhouette and bony anatomy. Abdominal component shows a nonspecific bowel gas pattern without signs of obstruction. No free air under the diaphragm. Prior cholecystectomy is noted. Patient was hydrated with normal saline and she received 4 mg of Zofran IV and 4 mg of morphine IV. Patient was reassessed multiple times during her stay in the emergency department. Patient's case was reviewed with Dr. Dillon; we agreed on diagnostic approach , treatment, disposition and plan. Patient was educated about today's findings and instructed on her treatment plan ; she verbalized understanding and agreement with this plan. Clinical Impression: Rectal bleeding. Ongoing abdominal pain. Decision-Making: Initially my differential diagnosis I considered colitis, diverticulitis, hemorrhoids, gastric ulcer, endometriosis and other causes. Disposition: He/she discharged home in stable condition accompanied by male friend; prior to departure she was reassessed and subjectively reported she was feeling better and rated her discomfort 5/10. Plan: Patient was encouraged to continue her current medications as prescribed. Patient was encouraged use 650 mg of acetaminophen every 6 hours as needed for pain. Patient was encouraged to use [id number] Colace to increase the softness of her stool to reduce irritation to her possible internal hemorrhoids. 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 Patient was encouraged return ED for worsening bleeding, black/tarry stools, worsening pain, fevers or any new/concerning symptoms.
== END 2016-11-30 01:09 | disposition home or self-care (01) ==
LOC: C.EDB 22:23
DX: K62.5 Hemorrhage of anus and rectum (principal); R10.13 Epigastric pain; J45.909 Unspecified asthma, uncomplicated; Z79.899 Other long term (current) drug therapy

== ENCOUNTER → 2017-05-05 | Outpatient (CLI) | payer OTHER ==
[~2017-05-05] MED LIST changes: -PANT20TA PO; +PANT40TA2 PO; -PRLSR20 PO
== END | disposition home or self-care (01) ==
LOC: C.LABSPEC 16:30
PROVIDERS: ATTEND Physician Assistant
DX: R30.0 Dysuria (principal)

== ENCOUNTER → 2017-06-12 | Outpatient (CLI) | payer OTHER ==
[2017-06-12 12:34] LABS: BASO % 0.7 %; BASO ABS # 0.05 K/uL (0-0.2); EOS % 2.1 %; EOS ABS # 0.16 K/uL (0-0.5); HEMATOCRIT 41.6 % (37-47); HEMOGLOBIN 13.3 g/dL (12.0-16.0); IG# 0.01 K/uL (0.00-0.02); LYMPH % 24.2 %; LYMPH ABS # 1.82 K/uL (1.2-3.4); MEAN CELL VOLUME 83.7 fL (80-100); MEAN CORPUSCULAR HEMOGLOBIN 26.8 pg (25-34); MEAN PLATELET VOLUME 11.9 fL (7.4-10.4); MONO % 7.5 %; MONO ABS # 0.56 K/uL (0.11-0.59); NEUT % 65.4 %; NEUT ABS # 4.91 K/uL (1.4-6.5); PLATELET COUNT 387 K/uL (130-400); RED CELL DISTRIBUTION WIDTH CV 14.2 % (11.5-14.5); RED CELL DISTRIBUTION WIDTH SD 43.4 fL (36.4-46.3); WHITE BLOOD COUNT 7.51 K/uL (4.8-10.8)
[2017-06-12 13:08] LABS: HEMOGLOBIN A1C 5.8 % (4.5-5.6)
[2017-06-12 13:16] LABS: ALBUMIN 3.5 gm/dl (3.4-5.0); ALT/SGPT 30 U/L (12-78); BLOOD UREA NITROGEN 14 mg/dl (7-18); CALCIUM 8.9 mg/dl (8.5-10.1); CARBON DIOXIDE 26 mmol/L (21-32); CHOLESTEROL 166 mg/dl (0-200); CREATININE 0.68 mg/dl (0.60-1.20); GLUCOSE 89 mg/dl (70-99); POTASSIUM 4.4 mmol/L (3.5-5.1); SODIUM 139 mmol/L (136-145)
[2017-06-12 13:25] LABS: ALKALINE PHOSPHATASE 84 U/L (45-117); AST/SGOT 12 U/L (15-37); LDL CHOLESTEROL CALCULATED 105 mg/dl; TOTAL PROTEIN 6.9 gm/dl (6.4-8.2)
== END | disposition home or self-care (01) ==
LOC: C.LABPBG 07:30
PROVIDERS: ATTEND Family Medicine
DX: R51 Headache (principal); E66.01 Morbid (severe) obesity due to excess calories

== ENCOUNTER → 2017-07-03 | Outpatient (CLI) | payer OTHER ==
[~2017-07-03] MED LIST changes: +GADAVIST IV PRN
--- NOTE | 2017-07-03 18:01 | DIAGNOSTIC IMAGING REPORT ---
BRAIN COMBO CLINICAL HISTORY: R51 [id number] headache. Mental status change. COMPARISON STUDY: No previous studies for comparison. TECHNIQUE: Utilizing a 1.5 Steffanie magnet and dedicated coil, multiplanar, multiecho imaging of the brain was performed pre and postcontrast administration. IV administration of 12 mL of Gadavist contrast was uneventful. FINDINGS: Diffusion-weighted images show no evidence for an acute ischemic event. Signal characteristics of the cerebellar and cerebral hemispheres are unremarkable. Ventricular system is midline. Sella and parasellar region are unremarkable. No abnormal postcontrast enhancement. IMPRESSION: Normal study. The above report was generated using voice recognition software. It may contain grammatical, syntax or spelling errors. Electronically signed by: Anoop Elder M.D. 07/03/2017 6:00 PM Dictated Date/Time: 07/03/2017 5:56 PM
== END | disposition home or self-care (01) ==
LOC: C.MRI 16:32
PROVIDERS: ATTEND Family Medicine
DX: R51 Headache (principal)

== ENCOUNTER → 2017-07-20 | Outpatient (CLI) | payer OTHER ==
[~2017-07-20] MED LIST changes: -GADAVIST IV PRN
== END | disposition home or self-care (01) ==
LOC: C.LABSPEC 15:50
PROVIDERS: ATTEND Physician Assistant
DX: N94.10 Unspecified dyspareunia (principal)

== ENCOUNTER → 2017-07-20 | Outpatient (CLI) | payer OTHER | END | disposition home or self-care (01) | LOC: C.PAPS 15:22 | PROVIDERS: ATTEND Physician Assistant | DX: N93.0 Postcoital and contact bleeding (principal) ==

== ENCOUNTER → 2017-07-24 | Outpatient (CLI) | payer OTHER ==
[2017-07-24 22:33] LABS: LUTEINIZING HORMONE 6.48 IU/L; PROLACTIN 14.16 ng/mL
[2017-07-24 22:34] LABS: FOLLICLE STIMULAT HORMONE 6.2 IU/L
== END | disposition home or self-care (01) ==
LOC: C.LABPBG 09:30
PROVIDERS: ATTEND Family Medicine
DX: N92.6 Irregular menstruation, unspecified (principal); N94.10 Unspecified dyspareunia

== ENCOUNTER 2017-08-18 16:20 | Emergency (ER) | payer OTHER ==
[~2017-08-18] VITALS: Ht 160 cm; Wt 121.2 kg
[~2017-08-18 16:20] MED LIST changes: -LITH600C PO; -MONT1TAB3 PO; -PANT40TA2 PO
[2017-08-18 16:25] VITALS: TEMP 36.7; Ht 160 cm; Wt 121.2 kg
[2017-08-18 17:15] LABS: BASO % 0.8 %; BASO ABS # 0.07 K/uL (0-0.2); EOS % 2.4 %; EOS ABS # 0.21 K/uL (0-0.5); HEMATOCRIT 36.6 % (37-47); HEMOGLOBIN 12.1 g/dL (12.0-16.0); IG# 0.02 K/uL (0.00-0.02); LYMPH % 31.1 %; LYMPH ABS # 2.68 K/uL (1.2-3.4); MEAN CELL VOLUME 81.7 fL (80-100); MEAN CORPUSCULAR HGB CONC 33.1 g/dl (32-36); MEAN PLATELET VOLUME 10.7 fL (7.4-10.4); MONO % 6.8 %; MONO ABS # 0.59 K/uL (0.11-0.59); NEUT % 58.7 %; NEUT ABS # 5.06 K/uL (1.4-6.5); PLATELET COUNT 380 K/uL (130-400); RED CELL DISTRIBUTION WIDTH CV 14.1 % (11.5-14.5); RED CELL DISTRIBUTION WIDTH SD 42.5 fL (36.4-46.3); WHITE BLOOD COUNT 8.63 K/uL (4.8-10.8)
[2017-08-18 17:25] LABS: PTT PATIENT 26.1 SECONDS (21.0-31.0)
--- NOTE | 2017-08-18 17:33 | EMERGENCY ROOM VISIT NOTE ---
History First contact with patient: 16:30 Chief Complaint: ED VAG BLEEDING Stated Complaint: DIZZY, LIGHTHEADED, BLEEDING FOR 1MONTH, CLOTS History of Present Illness The patient is a 21 year old female who presents to the Emergency Room with complaints of heavy vaginal bleeding. The patient reports that she has had her menstrual period for the past 1 month and 3 days. She states she has had heavy bleeding and has passed blood clots that are the size of golf balls. She states that she has always had irregular periods. They are always very heavy but do not always last this long. She saw her WIND [employer]PERATIONS SUPERVISOR about this and they wanted to schedule an ultrasound to look at her ovaries. She states she has been dizzy and lightheaded. She reports pain throughout her low back. She rates the discomfort an 8/10. She states this is a throbbing pain. She has had a test which was negative. She contacted her W[employer]PERATIONS SUPERVISOR and they told her to come here for evaluation. Review of Systems A complete 10 point review of systems was reviewed with the patient with pertinent positives and negatives as per history of present illness. All else were negative. Past Medical/Surgical History Medical Problems: (1) Asthma (2) Bipolar Disorder, Unspecified (3) Esophageal Reflux Family History FHx: gallbladder disease Social History Smoking Status: Never Smoker Alcohol Use: none Drug Use: none Marital Status: single Housing Status: lives with family Occupation Status: student Current/Historical Medications Scheduled Amphetamine-Dextroamphetamine 10MG (Adderall 10MG), 10 MG PO QD@1600 Amphetamine-Dextroamphetamine 15MG (Adderall Xr 15MG), 15 MG PO QD@1600 Amphetamine-Dextroamphetamine 30MG (Adderall Xr 30MG), 30 MG PO QAM Levothyroxine Sodium (Levothyroxine Sodium), 50 MCG PO DAILY Sachse Carbonate (Sachse Carbonate), 600 MG PO BID Lurasidone HCl (Latuda), 40 MG PO DAILY Montelukast Sodium (Singulair), 10 MG PO QAM Norethindrone Acetate (Aygestin), 5 MG PO UD Ofloxacin (Oph) (Ocuflox Oph Soln), 1 DROP OPR BID Pantoprazole (Pantoprazole Sodium), 40 MG PO BID Scheduled PRN Albuterol Sulfate (Proventil Hfa), 2 PUFFS INH Q4H PRN for Shortness of Breath Fluticasone Propionate (Nasal) (Flonase Allergy Relief), 2 SPRAYS MARSHALL QAM PRN for Allergy Symptoms Ibuprofen (Advil), 200-600 MG PO Q4H PRN for Pain Physical Exam Vital Signs Date Time Temp Pulse Resp B/P (MAP) Pulse Ox O2 Delivery O2 Flow Rate FiO2 08/18/17 18:57 82 111/59 100 08/18/17 17:59 88 128/69 98 Room Air 08/18/17 16:25 36.7 88 20 126/78 97 Room Air Physical Exam VITALS: Vitals are noted on the nurse's note and reviewed by myself. Vital signs stable. GENERAL: This is a 21-year-old female, in no acute distress, nondiaphoretic, well-developed well-nourished. SKIN: The skin was without rashes. MOUTH: Mucous membranes moist. HEART: Regular rate and rhythm without murmurs gallops or rubs. LUNGS: Clear to auscultation bilaterally without wheezes, rales or rhonchi. ABDOMEN: Positive bowel sounds x 4. Soft, tenderness to palpation across the lower abdomen. No guarding or rebound tenderness. NEURO: Patient was alert and oriented to person place and time. Medical Decision & Procedures ER Provider Diagnostic Interpretation: PELVIC COMPLETE NON OB CLINICAL HISTORY: pelvic pain, heavy periods COMPARISON STUDY: None FINDINGS: The uterus measured 7.8 cm. The endometrial stripe measured 1.2 cm. Heterogeneous echogenicity. Small amount of blood within the central canal.. The right ovary measured 3.3 cm maximum dimension with normal vascular flow. The left ovary measured 2.9 cm maximum dimension with normal vascular flow. There is no ultrasonographic evidence of ovarian torsion. It should be noted that ovarian torsion can be present with normal Doppler ultrasonographic findings. There was no evidence of pathologic free pelvic fluid. IMPRESSION: Thickened heterogeneous endometrium at 12 mm. Small amount of blood within the central canal. Diagnostic considerations include endometrial hyperplasia versus a prominent secretory phase of the menstrual cycle. Laboratory Results 08/18/17 17:00 Red Blood Count 4.48, Mean Corpuscular Volume 81.7, Mean Corpuscular Hemoglobin 27.0, Mean Corpuscular Hemoglobin Concent 33.1, Mean Platelet Volume 10.7, Neutrophils (%) (Auto) 58.7, Lymphocytes (%) (Auto) 31.1, Monocytes (%) (Auto) 6.8, Eosinophils (%) (Auto) 2.4, Basophils (%) (Auto) 0.8, Neutrophils # (Auto) 5.06, Lymphocytes # (Auto) 2.68, Monocytes # (Auto) 0.59, Eosinophils # (Auto) 0.21, Basophils # (Auto) 0.07 08/18/17 17:00 Test 08/18/17 17:00 White Blood Count 8.63 K/uL (4.8-10.8) Red Blood Count 4.48 M/uL (4.2-5.4) Hemoglobin 12.1 g/dL (12.0-16.0) Hematocrit 36.6 % (37-47) Mean Corpuscular Volume 81.7 fL (80-100) Mean Corpuscular Hemoglobin 27.0 pg (25-34) Mean Corpuscular Hemoglobin Concent 33.1 g/dl (32-36) Platelet Count 380 K/uL (130-400) Mean Platelet Volume 10.7 fL (7.4-10.4) Neutrophils (%) (Auto) 58.7 % Lymphocytes (%) (Auto) 31.1 % Monocytes (%) (Auto) 6.8 % Eosinophils (%) (Auto) 2.4 % Basophils (%) (Auto) 0.8 % Neutrophils # (Auto) 5.06 K/uL (1.4-6.5) Lymphocytes # (Auto) 2.68 K/uL (1.2-3.4) Monocytes # (Auto) 0.59 K/uL (0.11-0.59) Eosinophils # (Auto) 0.21 K/uL (0-0.5) Basophils # (Auto) 0.07 K/uL (0-0.2) RDW Standard Deviation 42.5 fL (36.4-46.3) RDW Coefficient of Variation 14.1 % (11.5-14.5) Immature Granulocyte % (Auto) 0.2 % Immature Granulocyte # (Auto) 0.02 K/uL (0.00-0.02) Prothrombin Time 10.0 SECONDS (9.0-12.0) Prothromb Time International Ratio 1.0 (0.9-1.1) Activated Partial Thromboplast Time 26.1 SECONDS (21.0-31.0) Partial Thromboplastin Ratio 1.0 Urine Color ORANGE Urine Appearance CLOUDY (CLEAR) Urine pH 7.5 (4.5-7.5) Urine Specific Henrietta 1.027 (1.000-1.030) Urine Protein NEG (NEG) Urine Glucose (UA) NEG (NEG) Urine Ketones NEG (NEG) Urine Occult Blood 3+ (NEG) Urine Nitrite NEG (NEG) Urine Bilirubin NEG (NEG) Urine Urobilinogen NEG (NEG) Urine Leukocyte Esterase SMALL (NEG) Urine WBC (Auto) 1-5 /hpf (0-5) Urine RBC (Auto) >30 /hpf (0-4) Urine Hyaline Casts (Auto) 0 /lpf (0-5) Urine Epithelial Cells (Auto) >30 /lpf (0-5) Urine Bacteria (Auto) NEG (NEG) Urine Test NEG (NEG) Anion Gap 5.0 mmol/L (3-11) Est Creatinine Clear Calc Drug Dose 129.0 ml/min Estimated GFR () 110.4 Estimated GFR (Non- 95.2 BUN/Creatinine Ratio 16.3 (10-20) Calcium Level 8.5 mg/dl (8.5-10.1) Total Bilirubin 0.3 mg/dl (0.2-1) Direct Bilirubin < 0.1 mg/dl (0-0.2) Aspartate Amino Transf (AST/SGOT) 16 U/L (15-37) Alanine Aminotransferase (ALT/SGPT) 34 U/L (12-78) Alkaline Phosphatase 93 U/L (45-117) Total Protein 7.0 gm/dl (6.4-8.2) Albumin 3.5 gm/dl (3.4-5.0) Thyroid Stimulating Hormone (TSH) 3.270 uIu/ml (0.300-4.500) Medical Decision Differential diagnosis includes heavy menstrual bleeding, endometriosis, thyroid disorder, malignancy, , among others. The patient is a 21-year-old female who presents today complaining of heavy vaginal bleeding. The patient states that she has had her menstrual period for the past 1 month and 3 days. Labs revealed no leukocytosis or concerning anemia. TSH indicates a euthyroid state. Coags normal. Urine negative. Ultrasound was obtained and showed a thickened endometrium. I discussed the case with the on-call provider for [facility] [employer] SUPERVISOR, Dr. Barnes. She recommended an Aygestin taper and follow-up in the office. Patient has no contraindications for Aygestin. She will contact their office for follow-up. Based on the patient's presentation and work up, I feel the patient is stable for outpatient treatment. The patient was educated to return to the emergency department for any worsening of their current condition or new/concerning symptoms. She will follow up with [employer] SUPERVISOR. Medication Reconcilliation Current Medication List: was personally reviewed by me Blood Pressure Screening Patient's blood pressure: Normal blood pressure Impression Primary Impression: Vaginal bleeding Departure Information Dispostion Home / Self-Care Condition GOOD Prescriptions Norethindrone Acetate (AYGESTIN) 5 Mg Tab 5 MG PO UD, #40 TAB 4 times daily 4 days, 3 times daily 3 days, twice daily 5 days, then daily until gone. Prov: Nguyen Jackson ., RODRIGUE 08/18/17 Referrals Jennifer Acosta DO (PCP) Miley Barnes M.D. Patient Instructions My [facility] Additional Instructions Aygestin as prescribed. This will stop the bleeding, but be aware that you will again begin bleeding when you stop this medication. Contact W[employer]PERATIONS SUPERVISOR to schedule a follow-up appointment. Return to the emergency department with worsening bleeding, passing out, or any other new/concerning symptoms.
--- NOTE | 2017-08-18 17:42 | DIAGNOSTIC IMAGING REPORT ---
PELVIC COMPLETE NON OB CLINICAL HISTORY: pelvic pain, heavy periods COMPARISON STUDY: None FINDINGS: The uterus measured 7.8 cm. The endometrial stripe measured 1.2 cm. Heterogeneous echogenicity. Small amount of blood within the central canal.. The right ovary measured 3.3 cm maximum dimension with normal vascular flow. The left ovary measured 2.9 cm maximum dimension with normal vascular flow. There is no ultrasonographic evidence of ovarian torsion. It should be noted that ovarian torsion can be present with normal Doppler ultrasonographic findings. There was no evidence of pathologic free pelvic fluid. IMPRESSION: Thickened heterogeneous endometrium at 12 mm. Small amount of blood within the central canal. Diagnostic considerations include endometrial hyperplasia versus a prominent secretory phase of the menstrual cycle. The above report was generated using voice recognition software. It may contain grammatical, syntax or spelling errors. Electronically signed by: Anoop Elder M.D. 08/18/2017 5:40 PM Dictated Date/Time: 08/18/2017 5:37 PM
[2017-08-18 17:46] LABS: ALBUMIN 3.5 gm/dl (3.4-5.0); ALT/SGPT 34 U/L (12-78); AST/SGOT 16 U/L (15-37); BLOOD UREA NITROGEN 14 mg/dl (7-18); CALCIUM 8.5 mg/dl (8.5-10.1); CARBON DIOXIDE 27 mmol/L (21-32); CREATININE 0.87 mg/dl (0.60-1.20); GLUCOSE 84 mg/dl (70-99); POTASSIUM 3.6 mmol/L (3.5-5.1); SODIUM 141 mmol/L (136-145)
[2017-08-18 17:56] LABS: ALKALINE PHOSPHATASE 93 U/L (45-117)
[2017-08-18] MEDS ORDERED: [UNRECOGNIZED DRUG - CODE] PO ×2 (18:16→18:17)
[2017-08-18] MEDS ORDERED: LEVO50TA6 PO (18:32)
[2017-08-18] MEDS ORDERED: OFLO0.3S4 OPR (18:32)
[2017-08-18] MEDS ORDERED: LTD/40 PO (18:32)
[2017-08-18] MEDS ORDERED: AMPH10TA2 PO (18:32)
[2017-08-18 18:57] VITALS: BP 111/59; PULSE 82; O2SAT 100
[2017-08-18] MEDS ORDERED: PANT40TA2 PO (19:32)
[2017-08-18] MEDS ORDERED: MONT1TAB3 PO (20:04)
[2017-08-18] MEDS ORDERED: LITH600C PO (22:11)
== END 2017-08-18 18:59 | disposition home or self-care (01) ==
LOC: C.EDB 16:21 → C.EDC 18:59
DX: N93.9 Abnormal uterine and vaginal bleeding, unspecified (principal); J45.909 Unspecified asthma, uncomplicated; F31.9 Bipolar disorder, unspecified; K21.9 Gastro-esophageal reflux disease without esophagitis; Z83.79 Family history of other diseases of the digestive system; Z79.899 Other long term (current) drug therapy